=== PATIENT | male | born 1995 | race Caucasian/White ===

== ENCOUNTER 2018-03-13 15:18 | Emergency (ER) | payer OTHER, SELFPAY ==
[2018-03-13 15:19] VITALS: BP 124/74; PULSE 72; RESP 18; TEMP 37; O2SAT 97; BMI 21.7
--- NOTE | 2018-03-13 16:27 | ED.VISSUMM ---
- ER Visit Summary Date of Service: 03/13/18 Chief Complaint: [Laceration left ring finger] History of Present Illness: The patient is a 22 M [presents the emergency department complaint of lacerating his left ring finger that occurred approximately 3:30 PM today. Patient was at work when he was using a hammer accidentally hit a thin piece of metal with his left ring finger. Patient unsure of his last tetanus. Patient is right-hand dominant.] Physical Examination: [HEENT-PERRLA, EOMI. Cranial nerves II through XII grossly intact. TMs clear. Mucous membranes moist. No adenopathy. Cardiovascular-regular rate and rhythm without murmur or ectopy Lungs-clear to auscultation, chest wall stable without crepitus or subcu emphysema Abdomen-normoactive bowel sounds, soft, nontender, no rebound or rigidity, no peritoneal signs. Extremities-intact ?4, normal range of motion, normal pulses. Left ring finger-patient has a small V-shaped laceration measuring approximately 1 cm that is very superficial. Patient has normal range of motion at the DIP and PIP joints. He is neurovascular intact. Test Results: [None indicated] Emergency Department Course and Treatment: [At this point I do not feel any type of suture repair is indicated. Wound was cleansed and a clean dressing will be applied.] Treatment Plan: [Patient to follow-up with [facility] care for wound check in 3-5 days.] Disposition: [Discharged home in stable condition] Impression: [Laceration the left ring finger 1 cm-no repair necessary] This note was generated with [employer] dictation software. It may contain incorrect words, spelling, and punctuation that were not noted in review of the chart prior to signing ED Disposition - Plan for ED Patient: Chief Complaint: Laceration Referrals: Isabella Calvin [Primary Care Provider] -
--- NOTE | 2018-03-13 16:29 | ED.DEP ---
ED Disposition - Plan for ED Patient: Chief Complaint: Laceration Instructions: ED Laceration Small Superf No Sutr Referrals: Isabella Calvin [Primary Care Provider] - [facility] [GROUP OF PHYSICIANS] - 3-5 Days
--- NOTE | 2018-03-13 16:30 | DCINST.ED_ITS ---
ED Disposition - Plan for ED Patient: Chief Complaint: Laceration Instructions: ED Laceration Small Superf No Sutr Referrals: Isabella Calvin [Primary Care Provider] - [facility] [GROUP OF PHYSICIANS] - 3-5 Days
[2018-03-13 16:45] VITALS: RESP 12
[2018-03-13] MEDS: Diphth,Pertuss(Acell),Tet Vac 0.5 ML Vial IM (16:54)
[2018-03-13 17:01] VITALS: PULSE 14
== END 2018-03-13 17:02 | disposition home or self-care (01) ==
PROVIDERS: Emergency Provider Emergency Medicine
DX: S61.215A Laceration without foreign body of left ring finger without damage to nail, initial encounter (principal); W26.8XXA Contact with other sharp object(s), not elsewhere classified, initial encounter; Y93.89 Activity, other specified; Y92.89 Other specified places as the place of occurrence of the external cause; Y99.0 Civilian activity done for income or pay
CPT/HCPCS: 90471; 90715; 99282; A4216